=== PATIENT | female | born 1960 | race Two or more races ===

== ENCOUNTER 2023-06-16 08:00 | Day surgery (SDC) | payer OTHER ==
[~2023-06-16] VITALS: Ht 154.9 cm; Wt 64.4 kg
[2023-06-16] MEDS ORDERED: LIDOCAINE 2% 100 MG/5 ML UJET TP ONE (08:56)
[2023-06-16] MEDS ORDERED: fentaNYL citrate 0.05 MG/ML VIAL ONE (08:56)
[2023-06-16] MEDS ORDERED: fentaNYL citrate 0.05 MG/ML VIAL IVP ONE (09:40)
== END 2023-06-16 10:10 | disposition home or self-care (01) ==
LOC: MDS 08:00 → MMU 08:16 → MDS 10:10
PROVIDERS: ATTEND Internal Medicine Gastroenterology
DX: Z12.11 Encounter for screening for malignant neoplasm of colon (principal); K63.5 Polyp of colon; K57.30 Diverticulosis of large intestine without perforation or abscess without bleeding; Z90.710 Acquired absence of both cervix and uterus; Z79.899 Other long term (current) drug therapy
CPT/HCPCS: 45385; J3010